=== PATIENT | female | born 1990 | race Two or more races ===

== ENCOUNTER 2018-03-28 18:33 | Emergency (ER) | payer OTHER ==
[~2018-03-28] VITALS: Ht 160 cm; Wt 59.1 kg
[2018-03-28] MEDS ORDERED: PRENATAL VITAMIN PO (18:48)
--- NOTE | 2018-03-28 22:04 | REPVR ---
EXAM: US First Trimester, Transabdominal EXAM DATE/TIME: 03/28/2018 9:22 PM CLINICAL HISTORY: 27 years old, female; Pain; complicated by abdominal or pelvic pain; Lower; First trimester; Gestational age or lmp: 6w 0d; ; Additional info: Pelvic pain; ? Lmp irregular; Hcg 33k TECHNIQUE: Real-time transabdominal obstetrical ultrasound of the maternal pelvis and a first trimester , less than 14 weeks 0 days, with image documentation. COMPARISON: No relevant prior studies available. FINDINGS: GESTATION: Gestation: Gestational sac within the uterus containing yolk sac and pole. Heart rate: heartbeat 120 beats per minute. Placenta: No subchorionic bleed. BIOMETRY: [place]-Rump length: The crown-rump length measures 4 mm suggesting an age of 6 weeks and 0 days. EDC is 11/21/2018. MATERNAL: Uterus: The uterus measures 10.2 cm in its cephalocaudad dimension and 5.6 x 7.1 cm in its AP and lateral dimensions. Cervix: Unremarkable. Right adnexa: The right ovary measures 4.2 x 5.0 x 3.2 cm and demonstrates a corpus luteum cyst measuring 2.5 x 1.7 x 2.9 cm and an adjacent simple cyst measuring 2.9 x 2.0 x 2.6 cm. Right ovarian blood flow was noted. Left adnexa: The left ovary measures 2.8 x 2.8 x 1.8 cm and demonstrates blood flow. Intraperitoneal: No intraperitoneal free fluid. IMPRESSION: 1. Single live intrauterine fetus with an estimated age of 6 weeks 0 days. The EDC is 11/21/2018. 2. Right ovarian corpus luteum cyst and adjacent simple cysts measuring 2.9 x 2.0 x 2.6 cm. Electronically signed by: Neheimas Sanders On 03/28/2018 22:04:08 PM
[2018-03-28 22:17] VITALS: BP 101/62
== END 2018-03-28 22:20 | disposition home or self-care (01) ==
LOC: M ED 18:33
DX: O34.81 Maternal care for other abnormalities of pelvic organs, first trimester (principal); Z3A.01 Less than 8 weeks gestation of pregnancy; Z79.899 Other long term (current) drug therapy

== ENCOUNTER 2018-09-01 09:52 | Outpatient (CLI) | payer OTHER ==
[~2018-09-01] VITALS: Ht 160 cm; Wt 73.3 kg
[~2018-09-01 09:52] MED LIST: PRENATAL VITAMIN PO
[2018-09-01 10:15] VITALS: BP 96/56
[2018-09-01 10:36] LABS: HEMATOCRIT 37.6 % (36.0-47.0); HEMOGLOBIN 12.5 g/dl (12.0-15.5); MEAN CORPUSCULAR HEMOGLOBIN 31.6 pg (27.0-33.0); MEAN CORPUSCULAR HGB CONC 33.2 g/dl (32.0-36.5); MEAN CORPUSCULAR VOLUME 95.2 fl (80.0-96.0); PLATELET COUNT, AUTOMATED 281 10^3/uL (150-450); RED BLOOD COUNT 3.95 10^6/uL (4.00-5.40); WHITE BLOOD COUNT 10.4 10^3/uL (4.0-10.0)
[2018-09-01 10:52] LABS: PARTIAL THROMBOPLASTIN TIME 25.7 SECONDS (25.4-37.6)
[2018-09-01 10:54] LABS: D-DIMER QUANT 807.83 ng/ml (<500)
[2018-09-01 11:43] VITALS: BP 119/65
--- NOTE | 2018-09-01 11:54 | REP ---
OB ULTRASOUND: Real-time sonographic evaluation of the gravid uterus is performed. There is a single living intrauterine gestation. The estimated gestational age is 28 weeks 3 days with EDC 11/21/2018. Today's measurements indicate appropriate growth. Biometry and Growth: BPD 73 mm = 29 weeks 1 day, 64th percentile HC 271 mm = 29 weeks 4 days, 75th percentile AC 246 mm = 28 weeks 6 days, 59th percentile FL 56 mm = 29 weeks 4 days, 75th percentile HC/AC ratio 1.10 within normal range. Estimated weight 1345 grams, 60th percentile. SEEN/GROSSLY UNREMARKABLE Lateral ventricles Yes Posterior fossa Yes Upper lip Yes Four-chamber heart Yes LVOT Yes RVOT Yes Stomach Yes Cord insertion Yes Three vessel cord Yes Kidneys Yes Bladder Yes Spine Yes Cervical length: The cervix is closed and measures 4.2 cm in length. heart rate: 150 beats per minute. position: Vertex. Placenta: Anterior and grade 0 with no previa or abruption. Amniotic fluid: Within normal limits. DAYDAY 11.8 within normal range of 9.3 to 22.9. S/D ratio: 2.96 RI: 0.66 within normal range. Electronically Signed by Kirit Nicholas MD 09/03/2018 08:34 A
[2018-09-01 12:54] LABS: AMPHETAMINES URINE REFLEX NEGATIVE (NEGATIVE); BARBITURATES URINE REFLEX NEGATIVE (NEGATIVE); BENZODIAZEPINES URINE REFLEX NEGATIVE (NEGATIVE); CANNABINOIDS URINE REFLEX NEGATIVE (NEGATIVE); COCAINE METABOLITE URINE REFLE NEGATIVE (NEGATIVE); METHADONE URINE REFLEX NEGATIVE (NEGATIVE); OPIATES URINE REFLEX NEGATIVE (NEGATIVE); PHENCYCLIDINE URINE REFLEX NEGATIVE (NEGATIVE)
[2018-09-01 14:19] VITALS: BP 109/68
[2018-09-01 15:20] VITALS: BP 112/73
[2018-09-01 16:51] VITALS: BP 95/56
== END 2018-09-01 16:58 | disposition home or self-care (01) ==
LOC: M LDO 09:52
PROVIDERS: ATTEND Advanced Practice Midwife
DX: O9A.313 Physical abuse complicating pregnancy, third trimester (principal); Y07.01 Husband, perpetrator of maltreatment and neglect; Z3A.28 28 weeks gestation of pregnancy
CPT/HCPCS: 36415; 59025; 76811; 80307; 85027; 85379; 85384; 85460; 85730; G0378; G0463

== ENCOUNTER 2018-11-23 23:02 | Inpatient (IN) | payer OTHER ==
[~2018-11-23] VITALS: Ht 160 cm; Wt 80.9 kg
[2018-11-23] MEDS ORDERED: LR 1,000 ML IV SCH (23:53)
[2018-11-24] VITALS (43 sets, daily range): BP systolic 91–130; BP diastolic 52–77
[2018-11-24 00:40] LABS: HEMATOCRIT 41.4 % (36.0-47.0); MEAN CORPUSCULAR HEMOGLOBIN 31.1 pg (27.0-33.0); MEAN CORPUSCULAR HGB CONC 33.8 g/dl (32.0-36.5); PLATELET COUNT, AUTOMATED 280 10^3/uL (150-450); WHITE BLOOD COUNT 12.6 10^3/uL (4.0-10.0)
[2018-11-24] MEDS ORDERED: FENTANYL 2MCG/ML ROPIVACAINE 0.2% IN 0.9% NACL 100ML IVBAG As Ordered ONE (02:27)
[2018-11-24] MEDS ORDERED: NALOXONE INJ 0.4 MG/1 ML VIAL (J2310) IV PRN (03:45)
[2018-11-24] MEDS ORDERED: REFRIGERATOR IV KEYS XX PRN (03:45)
[2018-11-24] MEDS ORDERED: EPIDURAL COMMENT XX SCH (03:45)
[2018-11-24] MEDS ORDERED: EPIDURAL/PCA KEYS XX PRN (03:45)
[2018-11-24] MEDS ORDERED: ONDANSETRON 4MG/2ML VIAL (J2405) IV PRN ×2 (03:45→07:45)
[2018-11-24] MEDS ORDERED: LACTATED RINGER'S 1000 ML IV PRN (03:45)
[2018-11-24] MEDS ORDERED: diphenhydrAMINE INJ 50MG/ML VIAL (J1200) IV PRN (03:45)
[2018-11-24] MEDS ORDERED: ePHEDrine SULFATE 25 MG/5 ML(5MG/ML) SYRINGE IV PRN (03:45)
[2018-11-24] MEDS ORDERED: FENTANYL/ROPIVACAINE/NACL BAG 100 ML EPIDURAL SCH (03:45)
[2018-11-24] MEDS ORDERED: OXYTOCIN DRIP 30 UNITS in IV 1 EA IV SCH ×2 (05:15→07:34)
[2018-11-24] MEDS ORDERED: LR 1,000 ML IV SCH (05:15)
[2018-11-24] MEDS ORDERED: OXYTOCIN 30 UNITS IN 0.9% NaCl 500ML IV BAG (J2590) As Ordered ONE (05:17)
--- NOTE | 2018-11-24 07:44 | DN ---
DATE OF DELIVERY: 11/24/2018 TIME OF : 0702 hours GENDER: Female. SCORES: 9 and 9. WEIGHT: 3830 grams. LACERATIONS: None. ANESTHESIA: Epidural. ESTIMATED BLOOD LOSS: 300 mL. DELIVERY NOTE: On November 24, 2018 at 0702 hours, Mrs. Lee is a 28-year-old 4, now para 2, who had spontaneous vaginal delivery of a liveborn female infant, scores 9 and 9, weight was 3830 grams. Head was delivered over intact perineum followed by delivery of shoulders and then corpus. was handed to mom with good cry. Cord was clamped times two and was cut by the father of baby under my direction. Cord blood was then collected for cord banking. Placenta was then delivered grossly intact. A premixed bag of 500 mL of normal saline along with you massage was then performed until the uterus was firm. On inspection cervix, vagina and perineum was grossly intact and hemostatic. Mom and baby were recovering in stable condition. All counts were correct with five laparotomy sponges accounted for prior to and after delivery. The couple decided to name their daughterColette.
[2018-11-24] MEDS ORDERED: ACETAMINOPHEN 500 MG TAB PO PRN (07:45)
[2018-11-24] MEDS ORDERED: ANUSOL HC CREAM 30GM TOP PRN (07:45)
[2018-11-24] MEDS ORDERED: METHYLERGONOVINE MALEATE 0.2 MG TAB PO PRN (07:45)
[2018-11-24] MEDS ORDERED: MEASLES,MUMPS,RUBELLA VACCINE INJ (MMR-II) (90707) SC SCH (07:45)
[2018-11-24] MEDS ORDERED: RHOGAM 300 MCG (1500 IU) INJ (J2790) IM SCH (07:45)
[2018-11-24] MEDS ORDERED: DIBUCAINE 1% OINTMENT 30GM TOP PRN (07:45)
[2018-11-24] MEDS ORDERED: IBUPROFEN 600 MG TAB PO PRN (07:45)
[2018-11-24] MEDS ORDERED: MOM 30ML SUSPENSION UDC PO PRN (07:45)
[2018-11-24] MEDS ORDERED: IBUPROFEN 800 MG TAB PO PRN (07:45)
[2018-11-24] MEDS ORDERED: ACETAMINOPHEN TAB 650MG DOSE (2X325MG) PO PRN (07:45)
--- NOTE | 2018-11-24 07:52 | HPE ---
DATE OF ADMISSION: 11/24/2018 REASON FOR ADMISSION: Labor. HISTORY OF PRESENT ILLNESS: Ms. Lee is a 28-year-old 4, para 1 who presents at 40 weeks 3 days estimated gestational age by last menstrual period confirmed by a 6 week ultrasound with complaints of contractions. She reports contractions that worsened throughout the day. Denies any vaginal bleeding or leakage of fluid. Reports active movement. Her course has been unremarkable. She initiated care in the first trimester at [facility] and has been appropriate throughout. PAST MEDICAL HISTORY: None. PAST SURGICAL HISTORY: She has had oral surgery. PAST OBSTETRICAL HISTORY: She is 4, para 1. She has had one term vaginal delivery proven to 6 pounds. MEDICATIONS: Includes: vitamins. ALLERGIES: She has no known drug allergies. PHYSICAL EXAMINATION: Vital signs: Stable. She is afebrile. She has category 1 heart rate tracing with contractions on tocometer. General appearance: Well appearing, no acute distress. Lungs: Clear to auscultation bilaterally. Cardiovascular: Heart regular rate and rhythm. Abdomen: Is gravid, nontender. EFW 3600 grams. Cervical exam: She is 4-5 cm dilated, 90% effaced -2 station. LABS: Blood type is A+, antibody screen is negative. Rubella is immune. RPR is nonreactive. Hepatitis surface antigen negative. HIV is negative. Chlamydia and gonorrhea screens negative. She had a normal1 hour Glucola and she is Group B streptococcus (GBS) negative. ASSESSMENT: 1. This patient is a 28-year-old 4, para 1 at 40 weeks 4 days estimated gestational age in active labor. 2. Reassuring status. PLAN: 1. Admit to Labor delivery, CBC, RPR, type and screen. 2. The patient is a good candidate for an epidural. 3. Anticipate spontaneous vaginal delivery.
[2018-11-24] MEDS: PRENATAL VITAMINS CHEWABLE TABLET PO SCH (09:00)
[2018-11-24] MEDS: DOCUSATE SODIUM 100 MG CAP PO SCH ×2 (09:00→21:00)
[2018-11-25 06:00] VITALS: BP 118/66
--- NOTE | 2018-11-25 08:12 | IPNPDOC ---
Progress Note Date of Service: Nov 25, 2018 Day#: 1 Progress Note SUBJECT: PT is a 28-year-old 4 now Para 2-0-2-2 status post uncomplica jatinder spontaneous vaginal delivery at 40-3/7 weeks' at approximately 0702 hours on [id number] of a female (3830 grams) with no vaginal laceration, doing well day # [1]. She has been ambulating, voiding spontaneously without issue and tolerating regular diet. Breast feeding has been difficult with latch just saw will see how she does. Reports lochia is [like a normal period]. Patient is ambulating well. [Reports some cramping with . Denies any pain. Voiding and stooling without difficulty]. OBJECTIVE: VITAL SIGNS: Within normal limits, afebrile. Alert and oriented times three. Breath sounds clear to auscultation. Heart rate: Regular rate and rhythm, no murmurs, rubs or gallops. Abdomen: Fundus firm at U-3. Soft, NTTP. . ASSESSMENT: PT is a 28-year-old 4 now Para 2-0-2-2 status post uncomplicated spontaneous vaginal delivery at 40-3/7 weeks' at approximately 0702 hours on [id number] of a female (3830 grams) with no vaginal laceration, doing well on day [1]. Vitals within normal limits, afebrile, hemodynamically stable with no evidence of infection. PLAN: 1. Discharge to home today. 2. Tylenol and Motrin for pain. colace for stool softener and dupivicaine for topical relief. 3. Encourage breast feeding and ambulation. 4. f/u visit contraception. 5. Routine PP visit in 6 weeks in clinic. 6. Discussed return precautions at length. VS, I&O, 24H, Fishbone Vital Signs/I&O Vital Signs Date Time Temp Pulse Resp B/P (MAP) Pulse Ox O2 Delivery O2 Flow Rate FiO2 11/25/18 06:00 97.5 75 16 118/66 (83) 96 I&O- Last 24 Hours up to 6 AM 11/25/18 06:00 Output Total 300 ml Balance -300 ml RADHA BRANDON MD Nov 25, 2018 08:12
--- NOTE | 2018-11-25 08:18 | OBDS ---
[facility] Obstetrical Discharge Sum. Obstetrical Discharge Summary Skid Worker/Provider: ERICH DOVE MD. Date: Nov 25, 2018 Time: 10:00 : 4 Term: 2 Pre-term: 0 Abortions: 2 Livin VDRL: Non-Reactive Rh: Positive Rubella: Immune Labor s/p uncomplicated for [place] Sex: Female Weight: pounds (10) Anesthesia: Regional Anesthesia Episiotomy none A/P, Post Course List any complications Admission diagnosis: labor, term gestation 40wks. Discharge diagnosis: ale Condition at Discharge: [stable] Discharge Instructions: [routine ] Activity: [as tolerated, 6 weeks vaginal rest] Diet: [regular] Medications: [tylenol 325mg 1-2 tabs as needed every 4-6 hours for pain ibuprofen 800mg 1 tab as needed every 8 hours for pain dubivicaine-topical as needed for discomfort colace 1-2 tabs as needed every 12 hours to prevent constipation] Follow-up: [6-8 weeks ] Other: [n/a] RADHA BRANDON MD Nov 25, 2018 08:18
[2018-11-25] MEDS: PRENATAL VITAMINS CHEWABLE TABLET PO SCH (09:40)
[2018-11-25] MEDS: DOCUSATE SODIUM 100 MG CAP PO SCH (09:40)
== END 2018-11-25 15:15 | disposition home or self-care (01) | DRG 807 ==
LOC: M LDO 23:02 → M LDI 11-24 00:02 → M OBS 11-24 09:46
PROVIDERS: ADMIT Obstetrics & Gynecology; ATTEND Obstetrics & Gynecology
PROC: 10E0XZZ Delivery of Products of Conception, External Approach (ICD-10-PCS; principal; 2018-11-24)
DX: O48.0 Post-term pregnancy (principal); Z37.0 Single live birth; Z3A.40 40 weeks gestation of pregnancy

== ENCOUNTER 2020-01-12 10:26 | Outpatient (CLI) | payer OTHER ==
[~2020-01-12] VITALS: Ht 160 cm; Wt 73.2 kg
[2020-01-12 10:46] VITALS: BP 104/59
[2020-01-12] MEDS ORDERED: TGTSUS3 PO (11:46)
[2020-01-12] MEDS: ONDANSETRON 4MG/2ML VIAL IV SCH (11:52)
[2020-01-12] MEDS: ACETAMINOPHEN 500 MG TAB PO ONE (11:53)
[2020-01-12] MEDS: LR 1,000 ML IV ONE (11:56)
[2020-01-12 11:58] VITALS: BP 94/52
[2020-01-12 12:25] LABS: INFLUENZA A AMPLIFICATION NEGATIVE (NEGATIVE); INFLUENZA B AMPLIFICATION NEGATIVE (NEGATIVE)
[2020-01-12 12:54] VITALS: BP 90/49
[2020-01-12 12:57] VITALS: BP 87/52
[2020-01-12 13:14] VITALS: BP 101/61
--- NOTE | 2020-01-12 13:42 | IPNPDOC ---
Obstetrical Progress Note Date of Service Jan 12, 2020 Subjective 29 y/o at 22w2d with FLACA of 05/15/2020 presents to L&D with complaints of body aches, headache, cough, fever/chills, nausea, and vomiting since last night. She reports that she had a temperature last night that was 100.2 F and she took some children's tylenol that did not relieve her fever. She denies any sick contacts at home or that she has had contact with. She denies vaginal bleeding, leaking of fluid, contractions, and reports positive movement. Objective Vital Signs Date Time Temp Pulse Resp B/P (MAP) Pulse Ox O2 Delivery O2 Flow Rate FiO2 01/12/20 11:58 103 94/52 (66) 01/12/20 11:53 100.1 01/12/20 10:46 99.7 99 20 104/59 (74) 100 Laboratory Tests 01/12/20 11:25: Coronavirus (COVID-19)(PCR) NEGATIVE, Influenza Type A (RT-PCR) NEGATIVE, Influenza Type B (RT-PCR) NEGATIVE, Respiratory Syncytial Virus (RT-PCR NEGATIVE Vital Signs Date Time Temp Pulse Resp B/P (MAP) Pulse Ox O2 Delivery O2 Flow Rate FiO2 01/12/20 10:46 99.7 99 20 104/59 (74) 100 Vital Signs Date Time Temp Pulse Resp B/P (MAP) Pulse Ox O2 Delivery O2 Flow Rate FiO2 01/12/20 11:58 103 94/52 (66) 01/12/20 11:53 100.1 01/12/20 10:46 20 100 Assessment Heart Rate (FHR): 150 (by doppler) Tocometer Contractions: No Assessment and Plan Age: 29 : 5 Term: 2 Pre-term: 0 Abortions: 2 Livin EGA at Admission: 22 (+2) Weeks & Days 22w2d Status: Reassuring Anticipate: Other (Discharged to home, certified not in labor) Additional Comments Diagnosis: Upper respiratory infection Discussed results of negative COVID, Flu, and RSV test Recommended to quarantine for 14 days due to COVID/Flu like symptoms Recommended to hydrate well with 3-4 liters of fluid Recommended to remain on a clear liquid diet x48 hours and then advance diet as tolerated. Keep next appointment in the clinic as virtual appointment underwriting clerks supervisor prescriptions at the pharmacy for Afrin, Mucinex-D, Tylenol, and short course of ibuprofen, discussed not to take ibuprofen after 28 wks Return if symptoms persist or worsen labor precautions discussed DIDIER TODD CNM Jan 12, 2020 12:59
== END 2020-01-12 13:20 | disposition home or self-care (01) ==
LOC: M LDO 10:26
PROVIDERS: ATTEND Registered Nurse Maternal Newborn
DX: O99.512 Diseases of the respiratory system complicating pregnancy, second trimester (principal); O99.612 Diseases of the digestive system complicating pregnancy, second trimester; R11.2 Nausea with vomiting, unspecified; R05 Cough; Z3A.22 22 weeks gestation of pregnancy
CPT/HCPCS: 87631; 96361; 96374; G0378; G0463; J2405; U0002

== ENCOUNTER → 2020-03-06 | Outpatient (CLI) | payer SELFPAY ==
[~2020-03-06] MED LIST changes: +TGTSUS3 PO
== END ==
LOC: M LABSMTC 12:58
PROVIDERS: ATTEND Pediatrics
DX: Z20.828 Contact with and (suspected) exposure to other viral communicable diseases (principal)

== ENCOUNTER 2020-05-04 19:37 | Outpatient (CLI) | payer OTHER, SELFPAY ==
--- NOTE | 2020-05-04 20:26 | IPNPDOC ---
Obstetrical Progress Note Date of Service May 04, 2020 Subjective 29yo at 38+3 presents for labor check. Her contractions were every 5 minutes and were moderate but now are every 10 minutes and are not painful. She was concerned because [place] had [place] denied n/v/d, cp, sob, segundo, visual changes, abd pain, f/c, vb, dc, urinary sx. Assessment Heart Rate (FHR): 150 Variability: Moderate Accelerations: Positive Decelerations: None Heart Rate Tracing: Category I Tocometer Contractions: Yes Frequency: greater than 9 min/apart Sterile Vaginal Examination Dilation: 3 cm Effacement (%): 50% Station: -3 Cervical Consistency: Soft Cervical Position: Posterior Postion/Presentation: Cephalic presentation (by US) Assessment and Plan Status: Reassuring Additional Comments 29yo at 38+3 presents for labor check. CAT I tracing, reactive. VS normal (initial BP was mild range (systolic 150s) but immediate repeat was normotensive (systolic 100s) suspect initial reading error, no si/sx of pre-e, pt has apt in a couple days where her BP will be rechecked). US cephalic with MVP 4.1cm. SVE 3cm and she was 3cm on Friday in clinic. Labor is unlikley at this time/ - routine OB return precautions - follow up in clinic at next apt Physical Examination General Exam: Positive: Alert ENT EXAM: Positive: Atraumatic Neck Exam: Positive: Supple Chest Exam: Positive: Normal air movement Heart Exam: Positive: Rate Normal Female Exam: Positive: Nl Ext Genitalia Psych Exam: Positive: Mental status NL BREE TOBAR DO May 04, 2020 20:26
== END 2020-05-04 20:30 | disposition home or self-care (01) ==
LOC: M LDO 19:37
PROVIDERS: ATTEND Obstetrics & Gynecology
DX: O47.1 False labor at or after 37 completed weeks of gestation (principal); Z3A.38 38 weeks gestation of pregnancy
CPT/HCPCS: 59025; 76815; G0378; G0463

== ENCOUNTER 2020-05-08 17:00 | Inpatient (IN) | payer OTHER ==
[~2020-05-08] VITALS: Ht 160 cm; Wt 77.9 kg
[2020-05-08] VITALS (7 sets, daily range): BP systolic 110–128; BP diastolic 55–77
[~2020-05-08 17:00] MED LIST changes: +ACET-1439 PO; -TGTSUS3 PO
[2020-05-08] MEDS ORDERED: METHYLERGONOVINE MALEATE 0.2 MG TAB PO PRN (17:15)
[2020-05-08] MEDS ORDERED: ACETAMINOPHEN TAB 650MG DOSE (2X325MG) PO PRN (17:15)
[2020-05-08] MEDS ORDERED: IBUPROFEN 800 MG TAB PO PRN (17:15)
[2020-05-08] MEDS ORDERED: RHOGAM 300 MCG (1500 IU) INJ (J2790) IM SCH (17:15)
[2020-05-08] MEDS ORDERED: MEASLES,MUMPS,RUBELLA VACCINE INJ (MMR-II) (90707) SC SCH (17:15)
[2020-05-08] MEDS ORDERED: ACETAMINOPHEN 500 MG TAB PO PRN (17:15)
[2020-05-08] MEDS ORDERED: DOCUSATE SODIUM 100MG CAPSULE PO PRN (17:15)
[2020-05-08] MEDS ORDERED: OXYTOCIN INJ 10 UNITS/ML VIAL (J2590) IM ONE (17:15)
[2020-05-08] MEDS ORDERED: BENZOCAINE 20% HEMORRHOIDAL OINTMENT 28GM TUBE TOP PRN (17:15)
[2020-05-08] MEDS ORDERED: IBUPROFEN 600MG TAB PO PRN (17:15)
[2020-05-08 18:40] LABS: HEMATOCRIT 39.2 % (36.0-47.0); HEMOGLOBIN 12.5 g/dl (12.0-15.5); MEAN CORPUSCULAR HEMOGLOBIN 28.3 pg (27.0-33.0); MEAN CORPUSCULAR HGB CONC 31.9 g/dl (32.0-36.5); MEAN CORPUSCULAR VOLUME 88.7 fl (80.0-96.0); PLATELET COUNT, AUTOMATED 261 10^3/uL (150-450); RED BLOOD COUNT 4.42 10^6/uL (4.00-5.40); WHITE BLOOD COUNT 20.3 10^3/uL (4.0-10.0)
--- NOTE | 2020-05-08 20:58 | HPEPDOC ---
Obstetrical History & Physical General Date of Admission May 08, 2020 at 17:00 Primary Care Physician: Clay Reece MD History of Present Illness admitted in labor and immanent delivery Chief Complaint: Contractions, term Information Provided By: Patient Age: 29 : 5 Term: 2 Pre-term: 0 Abortions: 2 Livin Care Care: Good Care Number of Visits: 6 Dating Final EDC: May 15, 2020 Final EDC for Daily Update: May 15, 2020 Final EDC by: LMP (08/09/19) LMP: August 09, 2019 1st Trimester Date: Oct 27, 2019 Weeks + Days: 11.2 Estimated Date of Confinement: May 15, 2020 EGA at Admission: 39.0 Antepartum Course Diagnos(e)s immanent delivery Height (inches): 5.3 Pre- weight (lbs.): 130.0 Admission Weight (lbs.): 171.4 Change in Weight (lbs.): 41.0 Past Medical History Past Obstetrical History : Past Obstetrical History: Multigravida Date of Delivery: Dec 10, 2011 Gestation: 40.0 Type of Delivery: Spontaneous Vaginal Del. Sex of Infant: Female Weight of (grams): 2948 Complications: No ( ) RIB PULLER History: No pertinent history Past Medical History Medical History non contributory Surgical History: Denies/None Family History Significant Family History: No pertinent family hx Social History Marital Status: Family situation: Spouse/partner home Psychosocial History: No pertinent psych hx * Smoker: non-smoker Alcohol: Denies Drugs: denies Abuse Violence Screening Have you been hit/kicked/slapp: No Have you been sexually assault: No Imunizations Tdap status: current Allergies Coded Allergies: No Known Allergies (Unverified , 05/08/20) Physical Examination Physical Examination GENERAL: Alert and oriented times three. BREAST: . ABDOMEN: Gravid and non-tender to touch. FETUS: Is vertex (VTX) by sterile vaginal examination (SVE), fetus is vertex (VTX) by Kapil. HEART RATE: Regular rate and rhythm. LUNGS: Clear to auscultation (CTA). EXTREMITIES: No edema. No clonus. Deep tendon reflexes (DTRs) + . Other physical findings pushing uncontrolled Vital Signs/I&O Vital Signs Date Time Temp Pulse Resp B/P (MAP) Pulse Ox O2 Delivery O2 Flow Rate FiO2 05/08/20 20:10 99.8 112 20 112/55 (74) 05/08/20 19:05 98 Room Air Laboratory Data 24H LABS Laboratory Tests 2 05/08/20 17:31: Serology Scanned Report Hepatitis B Testing 05/08/20 18:27: Nucleated Red Blood Cells % (auto) 0.0, Syphilis Serology NONREACTIVE CBC/BMP Laboratory Tests 05/08/20 18:27 Urine Culture: No Growth Pertinent Laboratoy Data Blood Type: A+ RBC Antibody Screen: Negative HIV: Negative Hepatitis B: Negative Rapid Plasma Reagin: Nonreactive Rubella: Immune Varicella: Immune Group B Streptococcus: Negative Cystic Fibrosis: Negative Anatomy Ultrasound Placenta Location: Anterior Normal Anatomy: Yes Placenta Previa: No Steroid Therapy Steroid Therapy: No Vaginal Examination Dilation: complete Effacement: 100% Station: +1, +2 Cervical Consistency: Soft Cervical Position: Anterior Presentation: Cephalic presentation Assessment Variability: Moderate Accelerations: Present Decelerations: None Tocometer Contractions: Yes Frequency: regular Duration: greater than 60 seconds Strength: palpated as strong Assessment/Plan Assessment 29year-old (G)5 para (P2 at 39 weeks by 11-week ultrasound. Presents to Labor and Delivery (L&D) fully dilated and Plan Admit and orient. 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 Diet: npo Group B Streptococcus (GBS) [negative]. Labs and intravenous (IV) per unit protocol. Counseled on Pitocin post Lactated Ringers (LR): bolus 500 ml . Anticipate [normal spontaneous delivery ()].immanent delivery C-S as appropriate. Labor and Delivery Counseling delivered live born male placenta attached Clay Reece MD May 08, 2020 20:55
--- NOTE | 2020-05-08 21:05 | DNPDOC ---
[facility] Delivery Note Delivery Note DATE OF DELIVERY: 05/08/2020 PREDELIVERY DIAGNOSIS: 39 weeks' gestation and labor. POST DELIVERY DIAGNOSIS: Delivered. PROCEDURE: [Spontaneous vaginal delivery percipitant REAL ESTATE ATTORNEY: Dr.e. reece ANESTHESIA: none ESTIMATED BLOOD LOSS: 200 mL. FINDINGS: 7 pound 7 ounce male infant, Score 9/9 nuchal cord none grams 3370. DELIVERY SUMMARY: Patient is a 29-year-old 5 now para 3 who was admitted to labor and delivery for live male perineum intact placenta spontaneous 3 vessels complete. Clay Reece MD May 08, 2020 21:05
[2020-05-09 06:00] VITALS: BP 105/59
[2020-05-09] MEDS: PRENATAL VITAMINS CHEWABLE TABLET PO SCH (08:29)
--- NOTE | 2020-05-09 08:34 | IPNPDOC ---
Progress Note Date of Service: May 09, 2020 Day#: 1 Progress Note SUBJECT: Ange is a 29yo s/p precipitous , doing well day #1. She has been ambulating, voiding spontaneously without issue and tolerating regular diet. She is breast-feeding without difficulty. Reports lochia is decreasing. Patient is ambulating well. Pain well-controlled on motrin/tylenol. OBJECTIVE: VITAL SIGNS: Within normal limits, afebrile. Alert and oriented times three. Abdomen: Fundus firm at U-1. Soft, NTTP. Ext: no calf tenderness ASSESSMENT: Ange is a 29yo s/p precipitous , doing well day #1. Vitals within normal limits, afebrile, hemodynamically stable with no evidence of infection. PLAN: 1. Discharge to home tomorrow. 2. Tylenol and Motrin for pain. 3. Encourage regular diet and ambulation. 4. Encourage , support PRN 5. Routine PP visit in 6 weeks in clinic. 6. Discussed return precautions at length. [facility]/I&O Vital Signs Date Time Temp Pulse Resp B/P (MAP) Pulse Ox O2 Delivery O2 Flow Rate FiO2 05/09/20 06:00 98.8 79 16 105/59 (74) 05/08/20 19:05 98 Room Air I&O- Last 24 Hours up to 6 AM 05/09/20 06:00 Output Total 650 ml Balance -650 ml Laboratory Data 24H LABS Laboratory Tests 2 05/08/20 17:31: Serology Scanned Report Hepatitis B Testing 05/08/20 18:27: Nucleated Red Blood Cells % (auto) 0.0, Syphilis Serology NONREACTIVE CBC/BMP Laboratory Tests 05/08/20 18:27 AUGUSTIN HICKEY DO May 09, 2020 08:34
[2020-05-09] MEDS ORDERED: INFLUENZA QUADRIVALENT PF VACCINE 0.5ML SYRINGE IM ONE (09:00)
[2020-05-09 18:06] VITALS: BP 113/59
[2020-05-10 05:54] VITALS: BP 122/68
[2020-05-10] MEDS ORDERED: DOK1CAP7 PO (07:05)
[2020-05-10] MEDS ORDERED: IBUP-1022 PO (07:05)
[2020-05-10] MEDS: PRENATAL VITAMINS CHEWABLE TABLET PO SCH (08:19)
--- NOTE | 2020-05-10 10:23 | DSES ---
DISCHARGE SUMMARY DATE OF ADMISSION: 05/08/2020 DATE OF DISCHARGE: 05/10/2020 BRIEF HISTORY: A 29-year-old 5, now para 3, admitted with precipitous delivery in the bed, live male , 7 pounds 7 ounces, 3370 grams, scores of 9 and 9 at one and five minutes respectively. On her second day, we discussed phlebitis, cystitis, mastitis, endometritis, cellulitis, diet, exercise, pain management, perineal care. PHYSICAL EXAMINATION: Normocephalic, atraumatic. Neck full range of motion. Pupils equal and reactive to light. Distal pulses are symmetric. No evidence of deep venous thrombosis (DVT) or superficial phlebitis. CHEST: Clear bilateral bases. No wheezes or rhonchi. No costovertebral angle (CVA) tenderness. ABDOMEN: Soft. Uterus 2 below. Lochia is moderate. Perineum is intact. Blood pressure 122/68, respirations 18, pulse 75, temperature 98.1. Admitting hemoglobin 12.5, hematocrit 39.2, platelets 261. The rest of the examination, as mentioned, is unremarkable. No rashes, lesions or pruritus. No arthralgias or myalgias. No complaints of joint pain. No urgency or frequency. No diarrhea or constipation. Patient is planning on . 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 Six week checkup. All questions are answered, 20 minute discussion.
== END 2020-05-10 13:10 | disposition home or self-care (01) | DRG 807 ==
LOC: M LDI 17:00 → M OBS 20:00
PROVIDERS: ADMIT Obstetrics & Gynecology; ATTEND Obstetrics & Gynecology
PROC: 10E0XZZ Delivery of Products of Conception, External Approach (ICD-10-PCS; principal; 2020-05-08)
DX: O62.3 Precipitate labor (principal); Z37.0 Single live birth; Z3A.39 39 weeks gestation of pregnancy

== ENCOUNTER 2023-08-21 11:44 | Day surgery (SDC) | payer OTHER ==
[~2023-08-21] VITALS: Ht 160 cm; Wt 68.1 kg
[~2023-08-21 11:44] MED LIST changes: +DOK1CAP4 PO; +FLUO40CA PO; +GNPTAB36 PO; +IBUP-1022 PO
[2023-08-21] MEDS: NS 1,000 ML IV ONE (12:13)
[2023-08-21] MEDS ORDERED: LIDOCAINE 2% 100MG/5ML SDV (FOR ANES.) As Ordered ONE (13:25)
[2023-08-21] MEDS ORDERED: propofoL 200 MG/20 ML VIAL As Ordered ONE (13:25)
[2023-08-21 13:46] VITALS: TEMP 97.4
[2023-08-21 14:05] VITALS: BP 112/67; O2SAT 99
== END 2023-08-21 14:10 | disposition home or self-care (01) ==
LOC: M OPP 11:44 → MERGE 13:50 → M OPP 14:10
PROVIDERS: ATTEND Internal Medicine Gastroenterology
DX: K63.89 Other specified diseases of intestine (principal); K64.8 Other hemorrhoids; K59.00 Constipation, unspecified; K92.1 Melena; Z79.899 Other long term (current) drug therapy